=== PATIENT | male | born 1945 | race Caucasian/White ===

== ENCOUNTER 2017-08-21 23:41 | Emergency (ER) | payer OTHER, MEDICARE ==
[~2017-08-21] VITALS: Ht 177.8 cm; Wt 75.0 kg
[2017-08-22 00:12] LABS: HEMATOCRIT 42.8 % (38.0-50.0); HEMOGLOBIN 14.2 G/DL (12.5-16.6); MCH 30.9 PG (29.0-34.0); MCHC 33.2 G/DL (30.0-36.0); PLATELET COUNT 265 K/uL (156-360); RBC DIS.WIDTH-CV 12.4 % (11.8-14.6); RBC DIS.WIDTH-SD 42.7 % (39-53); WHITE BLOOD COUNT 9.5 K/uL (4.1-10.2)
[2017-08-22 00:23] LABS: ALBUMIN 4.1 g/dL (3.2-4.8)
[2017-08-22 00:24] LABS: CHLORIDE 105 mEq/L (99-109); POTASSIUM 3.6 mEq/L (3.7-5.4); SODIUM 142 mEq/L (136-147)
[2017-08-22 00:26] LABS: GLUCOSE 161 mg/dL (70-99); TOTAL PROTEIN 7.3 g/dL (6.4-8.3)
[2017-08-22 00:28] LABS: TOTAL BILIRUBIN 0.4 mg/dL (0.0-1.0)
[2017-08-22 00:29] LABS: ALKALINE PHOSPHATASE 57 IU/L (3-129)
[2017-08-22 00:30] LABS: CREATININE 1.2 mg/dL (0.6-1.3); GFR ESTIMATE (CALCULATED) > 59 mL/min/ (58.99-99999)
[2017-08-22 00:31] LABS: AST (GOT) 13 IU/L (2-34); UREA NITROGEN (BUN) 21 mg/dL (9-23)
[2017-08-22 00:33] LABS: ALT (GPT) 10 IU/L (3-49); LIPASE 24 U/L (1.0-51.0)
[2017-08-22 03:32] LABS: APPEARANCE SL.HAZY ((CLEAR)); BILIRUBIN NEGATIVE; BLOOD LARGE; COLOR YELLOW ((YELLOW)); GLUCOSE (STRIP) NEGATIVE; KETONES 20; LEUKOCYTES NEGATIVE; NITRITE NEGATIVE; PROTEIN (STRIP) 30; SPECIFIC GRAVITY 1.024 (1.000-1.030); UROBILINOGEN 0.2 MG/DL (0.2-1.0)
[2017-08-22 03:37] LABS: BACTERIA NONE SEEN /HPF; EPITHELIAL CELLS RARE /HPF; MUCUS TRACE /LPF; RED BLOOD CELLS TNTC /HPF (0-5); UCUL ADDED? YES; WHITE BLOOD CELLS 0-5 /HPF (0-5)
[2017-08-22] MEDS ORDERED: NORCO 5/3251 TABLET PO (03:51)
[2017-08-22] MEDS ORDERED: FLOMAX0.4 MG PO (03:51)
[2017-08-22] MEDS ORDERED: ZOFRAN4 MG PO (03:51)
[2017-08-22 04:27] VITALS: BP 160/80
== END 2017-08-22 04:27 | disposition home or self-care (01) ==
LOC: EME 23:41
DX: N13.2 Hydronephrosis with renal and ureteral calculous obstruction (principal)
CPT/HCPCS: 74176; 80053; 81003; 83690; 85027; 87086